=== PATIENT | male | born 1945 | race Caucasian/White ===

== ENCOUNTER 2016-06-22 19:06 | Emergency (ER) | payer OTHER ==
[2016-06-22 20:55] VITALS: BP 152/85
== END 2016-06-22 21:13 | disposition home or self-care (01) ==
LOC: ED 19:06
DX: M16.12 Unilateral primary osteoarthritis, left hip (principal); I10 Essential (primary) hypertension; E78.00 Pure hypercholesterolemia, unspecified
CPT/HCPCS: J1170; Q0092